=== PATIENT | male | born 1960 | race African-American/Black ===

== ENCOUNTER 2017-02-28 07:59 | Emergency (ER) | payer MEDICAID, OTHER ==
[~2017-02-28] VITALS: Ht 190.5 cm; Wt 130.0 kg
[~2017-02-28 07:59] MED LIST: HYDR12.529 PO; RAMI10CA19 PO
[2017-02-28 08:07] VITALS: BP 114/87
== END 2017-02-28 11:17 | disposition home or self-care (01) ==
LOC: ER 08:22
DX: J06.9 Acute upper respiratory infection, unspecified (principal); I10 Essential (primary) hypertension; M60.9 Myositis, unspecified; Z86.59 Personal history of other mental and behavioral disorders
CPT/HCPCS: 99283

== ENCOUNTER 2017-06-24 09:46 | Observation (INO) | payer OTHER ==
[~2017-06-24] VITALS: Ht 190.5 cm; Wt 131.6 kg
[2017-06-24] MEDS ORDERED: ACETAMINOPHEN 325MG TABLET PO ONE (10:45)
[2017-06-24] MEDS ORDERED: ENOXAPARIN 100MG/ML SYR SUBCUT ONE (12:15)
[2017-06-24] MEDS ORDERED: CLONIDINE 0.1MG TABLET PO PRN (12:30)
[2017-06-24] MEDS ORDERED: MAGNESIUM/ALUMINUM HYDROXIDE/SIMETHICONE 30ML UDC PO PRN (12:30)
[2017-06-24] MEDS ORDERED: IPRATROPIUM/ALBUTEROL 0.5-3(2.5)MG/3ML NEB INH PRN (12:30)
[2017-06-24] MEDS ORDERED: NA PHOS,M-B/NA PHOS,DI-BA ENEMA 118ML PR PRN (12:30)
[2017-06-24] MEDS ORDERED: ACETAMINOPHEN 650MG SUPP PR PRN (12:30)
[2017-06-24] MEDS ORDERED: DIPHENHYDRAMINE 50MG/ML VIAL IV PRN (12:30)
[2017-06-24] MEDS ORDERED: ACETAMINOPHEN 325MG TABLET PO PRN (12:30)
[2017-06-24] MEDS ORDERED: GUAIFENESIN 200MG/10ML SUGAR FREE UDC PO PRN (12:30)
[2017-06-24] MEDS ORDERED: HYDROCODONE/ACETAMINOPHEN 10/325MG TABLET PO PRN (12:30)
[2017-06-24] MEDS ORDERED: DOCUSATE SODIUM 100MG CAPSULE PO PRN (12:30)
[2017-06-24] MEDS ORDERED: ACETAMINOPHEN 650MG/20.3ML UDC GT PRN (12:30)
[2017-06-24 12:33] LABS: BASOPHILS % 0.4 % (0.0-2.0); EOSINOPHILS % 1.1 % (0.0-5.0); HEMATOCRIT. 41.5 % (42.0-52.0); LYMPHOCYTES % 32.3 % (20.0-50.0); MEAN CORPUSCULAR HEMOGLOBIN 31.7 pg (28.0-32.0); MEAN CORPUSCULAR VOLUME 94.3 fL (80.0-94.0); MEAN PLATELET VOLUME 7.7 fl (7.4-10.4); MONOCYTES % 13.7 % (2.0-8.0); NEUTROPHILS % 52.5 % (40.0-76.0); PLATELET 137 x1000/uL (130-400); RED CELL DISTRIBUTION WIDTH 12.9 % (11.6-14.6)
[2017-06-24 12:40] LABS: CHLORIDE 106 mEq/L (98-107)
[2017-06-24 12:42] LABS: PARTIAL THROMBOPLASTIN TIME 27.3 sec (23.4-31.0); PROTHROMBIN TIME 10.5 sec (9.4-11.6)
[2017-06-24 14:53] LABS: CLARITY URINE CLEAR (CLEAR); COLOR URINE YELLOW (YELLOW); KETONES URINE NEGATIVE (NEGATIVE); LEUKOCYTE ESTERASE URINE NEGATIVE (NEGATIVE); NITRITE URINE NEGATIVE (NEGATIVE); OCCULT BLOOD URINE NEGATIVE (NEGATIVE); PROTEIN URINE NEGATIVE (NEGATIVE); SPECIFIC GRAVITY URINE 1.022 (1.005-1.030)
[2017-06-24 15:15] LABS: *AMPHETAMINES SCREEN URINE NEGATIVE (NEGATIVE); *BARBITURATES SCREEN URINE NEGATIVE (NEGATIVE); *BENZODIAZEPINES SCREEN URINE NEGATIVE (NEGATIVE); *COCAINE SCREEN URINE NEGATIVE (NEGATIVE)
[2017-06-24 15:16] LABS: CANNABINOID URINE SCREEN PRESUMTIVE POSITIVE (NEGATIVE); METHADONE URINE SCREEN NEGATIVE (NEGATIVE); OPIATES URINE SCREEN NEGATIVE (NEGATIVE); PHENCYCLIDINE URINE SCREEN NEGATIVE (NEGATIVE)
[2017-06-24 16:40] VITALS: BP 155/89
[2017-06-24 16:41] VITALS: BP 155/89
[2017-06-24] MEDS ORDERED: LISI10TA5 PO (18:24)
[2017-06-24 20:00] VITALS: BP 136/80
[2017-06-24] MEDS: HYDROCODONE/ACETAMINOPHEN 5/325MG TABLET PO PRN (20:27)
[2017-06-24] MEDS: SODIUM CHLORIDE 0.9% INJ 3ML FLUSH IVF SCH (21:48)
[2017-06-24] MEDS ORDERED: ENOXAPARIN 150MG/ML SYR SUBCUT SCH (22:00)
[2017-06-25] VITALS: BP 128/72
[2017-06-25 04:00] VITALS: BP 144/67
[2017-06-25] MEDS: SODIUM CHLORIDE 0.9% INJ 3ML FLUSH IVF SCH (05:36)
[2017-06-25] MEDS: HYDROCODONE/ACETAMINOPHEN 5/325MG TABLET PO PRN (05:36)
[2017-06-25 06:00] LABS: BASOPHILS % 0.6 % (0.0-2.0); EOSINOPHILS % 1.8 % (0.0-5.0); HEMATOCRIT. 40.1 % (42.0-52.0); HEMOGLOBIN. 13.6 g/dL (14.0-18.0); MEAN CORPUSCULAR HEMOGLOBIN 32.3 pg (28.0-32.0); MEAN CORPUSCULAR VOLUME 95.2 fL (80.0-94.0); MEAN PLATELET VOLUME 8.3 fl (7.4-10.4); MONOCYTES % 12.9 % (2.0-8.0); NEUTROPHILS % 48.7 % (40.0-76.0); PLATELET 143 x1000/uL (130-400); RED BLOOD CELL COUNT 4.21 mill/uL (4.7-6.1)
[2017-06-25 06:44] LABS: CHLORIDE 106 mEq/L (98-107)
[2017-06-25 06:57] LABS: LDL CHOLESTEROL 57 mg/dL (5-100)
[2017-06-25 07:06] LABS: HDL CHOLESTEROL 68 mg/dL (40-59)
[2017-06-25 08:00] VITALS: BP 147/81
[2017-06-25] MEDS ORDERED: APIXABAN 5 MG TABLET PO SCH (09:00)
[2017-06-25 12:00] VITALS: BP 132/81
[2017-06-25] MEDS ORDERED: APIX5TAB PO (12:53)
[2017-06-25 13:35] VITALS: BP 132/81
[2017-06-28 09:06] LABS: DRVVT LA 41.4 sec (0.0-47.0); LUPUS ANTICOAG INTERPRETATION Comment: (.); PTT-LA 43.8 sec (0.0-51.9)
== END 2017-06-25 15:38 | disposition home or self-care (01) ==
LOC: ER 10:23 → 5WST 12:34 → EDBEDREQ 14:07 → ENRESERV 15:44
PROVIDERS: ADMIT Family Medicine; ATTEND Family Medicine
DX: I82.412 Acute embolism and thrombosis of left femoral vein (principal); I82.432 Acute embolism and thrombosis of left popliteal vein
CPT/HCPCS: 36415; 71045; 73502; 73562; 78582; 80053; 80061; 80305; 81003; 83880; 84484; 85025; 85610; 85613; 85730; 85732; 93005; 93306; 93970; 96372; 99285; A9540; A9558; G0378; J1650

== ENCOUNTER 2017-07-17 17:32 | Emergency (ER) | payer OTHER, MEDICAID ==
[~2017-07-17] VITALS: Ht 190.5 cm; Wt 128.0 kg
[~2017-07-17 17:32] MED LIST changes: +APIX5TAB PO; +LISI10TA5 PO; -RAMI10CA19 PO
[2017-07-17 23:40] VITALS: BP 158/87
== END 2017-07-17 23:45 | disposition home or self-care (01) ==
LOC: ER 21:13
DX: H11.32 Conjunctival hemorrhage, left eye (principal); E78.00 Pure hypercholesterolemia, unspecified; I10 Essential (primary) hypertension; F41.9 Anxiety disorder, unspecified; F12.10 Cannabis abuse, uncomplicated; Z98.890 Other specified postprocedural states
CPT/HCPCS: 99281

== ENCOUNTER 2018-03-14 08:48 | Emergency (ER) | payer OTHER ==
[~2018-03-14] VITALS: Ht 190.5 cm; Wt 137.0 kg
[2018-03-14] MEDS ORDERED: HYDROCODONE/ACETAMINOPHEN 5/325MG TABLET PO STA (11:40)
[2018-03-14 12:15] LABS: BASOPHILS % 0.6 % (0.0-2.0); EOSINOPHILS % 1.8 % (0.0-5.0); HEMATOCRIT. 45.2 % (42.0-52.0); HEMOGLOBIN. 15.1 g/dL (14.0-18.0); MEAN CORPUSCULAR HEMOGLOBIN 32.4 pg (28.0-32.0); MEAN CORPUSCULAR VOLUME 97.1 fL (80.0-94.0); MONOCYTES % 11.5 % (2.0-8.0); NEUTROPHILS % 52.1 % (40.0-76.0); PLATELET 133 x1000/uL (130-400); RED BLOOD CELL COUNT 4.66 mill/uL (4.7-6.1); RED CELL DISTRIBUTION WIDTH 13.7 % (11.6-14.6)
[2018-03-14 12:17] LABS: CHLORIDE 106 mEq/L (98-107)
[2018-03-14] MEDS ORDERED: ENOXAPARIN 120MG/0.8ML SYR SUBCUT ONE (14:00)
[2018-03-14 14:40] VITALS: BP 126/80
== END 2018-03-14 18:38 | disposition home or self-care (01) ==
LOC: ER 08:48 → CANBEDREQ 20:46
DX: I82.432 Acute embolism and thrombosis of left popliteal vein (principal); M17.11 Unilateral primary osteoarthritis, right knee; I10 Essential (primary) hypertension; F12.90 Cannabis use, unspecified, uncomplicated; Z87.828 Personal history of other (healed) physical injury and trauma; Z86.718 Personal history of other venous thrombosis and embolism
CPT/HCPCS: 36415; 71045; 73522; 73562; 80053; 83880; 84484; 85025; 85610; 93005; 93970; 99284; J1650

== ENCOUNTER 2019-01-04 11:47 | Emergency (ER) | payer OTHER ==
[~2019-01-04] VITALS: Ht 193 cm; Wt 136.0 kg
[2019-01-04] MEDS ORDERED: IBUPROFEN 600MG TABLET PO ONE (16:45)
[2019-01-04 18:52] VITALS: BP 149/95
[2019-01-04] MEDS ORDERED: ENOXAPARIN 150MG/ML SYR SUBCUT ONE (19:00)
== END 2019-01-04 19:52 | disposition home or self-care (01) ==
LOC: ER 11:47
DX: S70.02XA Contusion of left hip, initial encounter (principal); W18.39XA Other fall on same level, initial encounter; Y93.89 Activity, other specified; Y92.89 Other specified places as the place of occurrence of the external cause; Y99.8 Other external cause status; F12.10 Cannabis abuse, uncomplicated; F41.9 Anxiety disorder, unspecified; E78.00 Pure hypercholesterolemia, unspecified; I10 Essential (primary) hypertension; Z98.890 Other specified postprocedural states; Z79.899 Other long term (current) drug therapy; I82.502 Chronic embolism and thrombosis of unspecified deep veins of left lower extremity
CPT/HCPCS: 73502; 93970; 96372; 99284; J1650

== ENCOUNTER 2019-05-24 07:03 | Emergency (ER) | payer OTHER ==
[~2019-05-24] VITALS: Ht 188 cm; Wt 131.0 kg
[2019-05-24] MEDS ORDERED: OXYC30TA86 PO (07:45)
[2019-05-24] MEDS ORDERED: SOMA (07:45)
[2019-05-24] MEDS ORDERED: HYDROCODONE/ACETAMINOPHEN 5/325MG TABLET PO ONE (08:30)
[2019-05-24] MEDS ORDERED: LISINOPRIL 20MG TABLET PO ONE (08:30)
[2019-05-24] MEDS ORDERED: ONDANSETRON 4MG ODT PO ONE (08:30)
[2019-05-24 08:39] LABS: HEMATOCRIT. 45.5 % (42.0-52.0); HEMOGLOBIN. 15.3 g/dL (14.0-18.0); MEAN CORPUSCULAR HEMOGLOBIN 33.3 pg (28.0-32.0); MEAN CORPUSCULAR VOLUME 99.1 fL (80.0-94.0); MEAN PLATELET VOLUME 8.6 fl (7.4-10.4); PLATELET 109 x1000/uL (130-400); RED BLOOD CELL COUNT 4.59 mill/uL (4.7-6.1); RED CELL DISTRIBUTION WIDTH 13.3 % (11.6-14.6)
[2019-05-24 08:46] LABS: CHLORIDE 104 mEq/L (98-107); INR 0.9
[2019-05-24 08:51] LABS: ETHANOL BLOOD < 10 mg/dL
[2019-05-24 09:04] LABS: OPIATES URINE SCREEN NEGATIVE (NEGATIVE)
[2019-05-24 09:05] LABS: *AMPHETAMINES SCREEN URINE NEGATIVE (NEGATIVE); *BARBITURATES SCREEN URINE NEGATIVE (NEGATIVE); *BENZODIAZEPINES SCREEN URINE NEGATIVE (NEGATIVE); *COCAINE SCREEN URINE NEGATIVE (NEGATIVE); CANNABINOID URINE SCREEN PRESUMTIVE POSITIVE (NEGATIVE); PHENCYCLIDINE URINE SCREEN NEGATIVE (NEGATIVE)
[2019-05-24 09:06] LABS: METHADONE URINE SCREEN NEGATIVE (NEGATIVE); PLATELET ESTIMATE DECREASED
[2019-05-24] MEDS ORDERED: APIXABAN 5 MG TABLET PO STA (09:26)
[2019-05-24 12:30] VITALS: BP 154/86
== END 2019-05-24 12:33 | disposition home or self-care (01) ==
LOC: ER 07:03
DX: M54.42 Lumbago with sciatica, left side (principal); I10 Essential (primary) hypertension; F12.10 Cannabis abuse, uncomplicated; Z79.899 Other long term (current) drug therapy; Z98.890 Other specified postprocedural states; Z86.718 Personal history of other venous thrombosis and embolism; Z76.0 Encounter for issue of repeat prescription
CPT/HCPCS: 36415; 71045; 80053; 80305; 80320; 83880; 84484; 85025; 85610; 93005; 93970; 99285; Q0162; G0480

== ENCOUNTER 2019-07-10 22:36 | Emergency (ER) | payer OTHER ==
[~2019-07-10] VITALS: Ht 190.5 cm; Wt 126.3 kg
[~2019-07-10 22:36] MED LIST changes: +OXYC30TA86 PO; +SOMA
[2019-07-11 00:09] LABS: CHLORIDE 99 mEq/L (98-107)
[2019-07-11 00:12] LABS: HEMATOCRIT 41.7 % (42.0-52.0); HEMOGLOBIN 14.2 g/dL (14.0-18.0); MEAN CORPUSCULAR HEMOGLOBIN 33.8 pg (28.0-32.0); MEAN CORPUSCULAR VOLUME 99.5 fL (80.0-94.0); PLATELET 122 x1000/uL (130-400); RED BLOOD CELL COUNT 4.19 mill/uL (4.7-6.1); RED CELL DISTRIBUTION WIDTH 13.5 % (11.6-14.6)
[2019-07-11] MEDS ORDERED: HYDROCODONE/ACETAMINOPHEN 5/325MG TABLET PO ONE (00:45)
[2019-07-11 00:51] VITALS: BP 117/75
== END 2019-07-11 00:50 | disposition home or self-care (01) ==
LOC: ER 22:36
DX: K62.5 Hemorrhage of anus and rectum (principal); I82.502 Chronic embolism and thrombosis of unspecified deep veins of left lower extremity; M79.605 Pain in left leg; G89.29 Other chronic pain; K59.00 Constipation, unspecified; I10 Essential (primary) hypertension; Z79.01 Long term (current) use of anticoagulants
CPT/HCPCS: 36415; 80053; 85027; 86850; 86900; 99283

== ENCOUNTER 2020-05-26 06:01 | Emergency (ER) | payer OTHER, MEDICAID ==
[~2020-05-26] VITALS: Ht 188 cm; Wt 132.0 kg
[~2020-05-26 06:01] MED LIST changes: +LISI10TA26 PO; -LISI10TA5 PO
[2020-05-26] MEDS ORDERED: FUROSEMIDE 40MG/4ML VIAL IVP ONE (06:45)
[2020-05-26 07:02] LABS: BASOPHILS % 0.5 % (0.0-2.0); EOSINOPHILS % 1.9 % (0.0-5.0); HEMOGLOBIN. 14.5 g/dL (14.0-18.0); LYMPHOCYTES % 27.6 % (20.0-50.0); MEAN CORPUSCULAR VOLUME 100.5 fL (80.0-94.0); MEAN PLATELET VOLUME 8.2 fl (7.4-10.4); MONOCYTES % 11.9 % (2.0-8.0); NEUTROPHILS % 58.1 % (40.0-76.0); PLATELET 128 x1000/uL (130-400); RED BLOOD CELL COUNT 4.38 mill/uL (4.7-6.1); RED CELL DISTRIBUTION WIDTH 14.2 % (11.6-14.6)
[2020-05-26 07:10] LABS: CHLORIDE 104 mEq/L (98-107)
[2020-05-26 07:15] LABS: ETHANOL BLOOD < 10 mg/dL
[2020-05-26 07:19] LABS: CREATINE KINASE 337 IU/L (39-308)
[2020-05-26 07:22] LABS: PROTHROMBIN TIME 10.5 sec (9.6-11.0)
[2020-05-26] MEDS ORDERED: APIXABAN 5 MG TABLET PO STA (07:51)
[2020-05-26 07:53] LABS: CLARITY URINE CLEAR (CLEAR); COLOR URINE YELLOW (YELLOW); KETONES URINE NEGATIVE (NEGATIVE); LEUKOCYTE ESTERASE URINE NEGATIVE (NEGATIVE); NITRITE URINE NEGATIVE (NEGATIVE); OCCULT BLOOD URINE NEGATIVE (NEGATIVE); PROTEIN URINE NEGATIVE (NEGATIVE); SPECIFIC GRAVITY URINE 1.007 (1.005-1.030); UROBILINOGEN URINE 0.2 E.U./dL (0.2-1.0)
[2020-05-26 08:55] LABS: *AMPHETAMINES SCREEN URINE NEGATIVE (NEGATIVE); *BARBITURATES SCREEN URINE NEGATIVE (NEGATIVE); *BENZODIAZEPINES SCREEN URINE NEGATIVE (NEGATIVE); *COCAINE SCREEN URINE NEGATIVE (NEGATIVE); METHADONE URINE SCREEN NEGATIVE (NEGATIVE); OPIATES URINE SCREEN NEGATIVE (NEGATIVE)
[2020-05-26 08:56] LABS: CANNABINOID URINE SCREEN PRESUMTIVE POSITIVE (NEGATIVE); PHENCYCLIDINE URINE SCREEN NEGATIVE (NEGATIVE)
[2020-05-26] MEDS ORDERED: APIX5TAB PO (10:31)
[2020-05-26] MEDS ORDERED: FURO-151 PO (10:33)
[2020-05-26 11:12] VITALS: BP 134/74
== END 2020-05-26 11:30 | disposition home or self-care (01) ==
LOC: ER 06:01
DX: R60.0 Localized edema (principal); I11.0 Hypertensive heart disease with heart failure; I50.9 Heart failure, unspecified; E78.00 Pure hypercholesterolemia, unspecified; Z86.718 Personal history of other venous thrombosis and embolism
CPT/HCPCS: 36415; 71045; 80053; 80305; 80320; 81003; 82550; 83690; 83735; 83880; 84484; 85025; 85610; 93005; 93970; 96374; 99285; J1940; G0480

== ENCOUNTER 2020-11-12 23:14 | Inpatient (IN) | payer OTHER, MEDICAID ==
[~2020-11-12] VITALS: Ht 190.5 cm; Wt 121.1 kg
[~2020-11-12 23:14] MED LIST changes: +FURO-151 PO
[2020-11-12] MEDS ORDERED: ASPIRIN 81MG TABLET PO ONE (23:45)
[2020-11-12] MEDS ORDERED: NITROGLYCERIN 0.4MG TABLET SL SL PRN (23:45)
[2020-11-13 00:06] LABS: BASOPHILS % 0.4 % (0.0-2.0); EOSINOPHILS % 0.7 % (0.0-5.0); LYMPHOCYTES % 18.7 % (20.0-50.0); MEAN CORPUSCULAR HEMOGLOBIN 33.8 pg (28.0-32.0); MEAN CORPUSCULAR VOLUME 101.3 fL (80.0-94.0); MEAN PLATELET VOLUME 8.1 fl (7.4-10.4); MONOCYTES % 7.9 % (2.0-8.0); NEUTROPHILS % 72.3 % (40.0-76.0); PLATELET 129 x1000/uL (130-400); RED BLOOD CELL COUNT 4.74 mill/uL (4.7-6.1); RED CELL DISTRIBUTION WIDTH 14.8 % (11.6-14.6)
[2020-11-13 00:14] LABS: CHLORIDE 106 mEq/L (98-107)
[2020-11-13 00:18] LABS: ETHANOL BLOOD < 10 mg/dL
[2020-11-13] MEDS ORDERED: MORPHINE SULFATE 4 MG/ML CPJ (NOT FOR IM USE) IV ONE (00:30)
[2020-11-13] MEDS ORDERED: MORPHINE SULFATE 4 MG/ML CPJ (NOT FOR IM USE) IV NR (05:00)
[2020-11-13] MEDS ORDERED: IOHEXOL-350 100 ML BOTTLE ONE (06:39)
[2020-11-13 09:30] VITALS: BP 149/92
[2020-11-13] MEDS ORDERED: APIXABAN 5 MG TABLET PO SCH ×3 (10:00→17:00)
[2020-11-13] MEDS: FUROSEMIDE 40MG TABLET PO SCH (11:00)
[2020-11-13 14:29] LABS: CLARITY URINE CLEAR (CLEAR); COLOR URINE ORANGE (YELLOW); KETONES URINE NEGATIVE (NEGATIVE); LEUKOCYTE ESTERASE URINE NEGATIVE (NEGATIVE); NITRITE URINE NEGATIVE (NEGATIVE); OCCULT BLOOD URINE NEGATIVE (NEGATIVE); PROTEIN URINE NEGATIVE (NEGATIVE); SPECIFIC GRAVITY URINE 1.015 (1.005-1.030); UROBILINOGEN URINE 0.2 E.U./dL (0.2-1.0)
[2020-11-13 14:55] LABS: *AMPHETAMINES SCREEN URINE NEGATIVE (NEGATIVE); *BARBITURATES SCREEN URINE NEGATIVE (NEGATIVE); *BENZODIAZEPINES SCREEN URINE NEGATIVE (NEGATIVE); *COCAINE SCREEN URINE NEGATIVE (NEGATIVE); OPIATES URINE SCREEN PRESUMTIVE POSITIVE (NEGATIVE)
[2020-11-13 14:56] LABS: CANNABINOID URINE SCREEN PRESUMTIVE POSITIVE (NEGATIVE); METHADONE URINE SCREEN NEGATIVE (NEGATIVE); PHENCYCLIDINE URINE SCREEN NEGATIVE (NEGATIVE)
[2020-11-13 16:00] VITALS: BP 150/98
[2020-11-13 16:46] LABS: CREATINE KINASE 174 IU/L (39-308)
[2020-11-13 16:48] LABS: CREATINE KINASE MB FRACTION 5.2 ng/mL (0.5-3.6)
[2020-11-13 20:00] VITALS: BP 137/82
[2020-11-13] MEDS ORDERED: HYDROCODONE/ACETAMINOPHEN 5/325MG TABLET PO PRN (22:15)
[2020-11-13] MEDS ORDERED: DOCUSATE SODIUM 100MG CAPSULE PO NR (22:15)
[2020-11-13] MEDS ORDERED: NALOXONE HCL 0.4MG/ML VIAL IV PRN (22:15)
[2020-11-13] MEDS: ENOXAPARIN 120MG/0.8ML SYR SUBCUT SCH (23:36)
[2020-11-13] MEDS: ZOLPIDEM TARTRATE 5MG TABLET PO PRN (23:37)
[2020-11-14] VITALS: BP 148/91
[2020-11-14 04:00] VITALS: BP 154/96
[2020-11-14 06:16] LABS: INR 1.1; PROTHROMBIN TIME 11.3 sec (9.6-11.0)
[2020-11-14 06:42] LABS: FOLIC ACID (FOLATE) SERUM 7.7 ng/mL (>5.38)
[2020-11-14] MEDS: DOCUSATE SODIUM 100MG CAPSULE PO SCH ×2 (09:17→17:11)
[2020-11-14] MEDS: FUROSEMIDE 40MG TABLET PO SCH ×3 (09:17→17:12)
[2020-11-14] MEDS: ENOXAPARIN 120MG/0.8ML SYR SUBCUT SCH ×2 (09:17→21:27)
[2020-11-14] MEDS: LISINOPRIL 10MG TABLET PO SCH (09:22)
[2020-11-14] MEDS ORDERED: CLONIDINE 0.1MG TABLET PO PRN (12:15)
[2020-11-14] MEDS ORDERED: POTASSIUM CHLORIDE 20MEQ TABLET SR PO SCH (12:15)
[2020-11-14] MEDS ORDERED: FUROSEMIDE 40MG/4ML VIAL IVP SCH (12:15)
[2020-11-14 16:00] VITALS: BP 197/88
[2020-11-14 20:00] VITALS: BP 132/92
[2020-11-14] MEDS: GABAPENTIN 300MG CAPSULE PO SCH (22:00)
[2020-11-15] VITALS: BP 155/86
[2020-11-15] MEDS: ZOLPIDEM TARTRATE 5MG TABLET PO PRN ×2 (00:08→21:29)
[2020-11-15 04:00] VITALS: BP 153/94
[2020-11-15 05:14] LABS: BASOPHILS % 0.6 % (0.0-2.0); EOSINOPHILS % 1.5 % (0.0-5.0); HEMATOCRIT. 46.2 % (42.0-52.0); HEMOGLOBIN. 15.7 g/dL (14.0-18.0); LYMPHOCYTES % 39.7 % (20.0-50.0); MEAN CORPUSCULAR HEMOGLOBIN 34.6 pg (28.0-32.0); MEAN CORPUSCULAR VOLUME 101.6 fL (80.0-94.0); MEAN PLATELET VOLUME 8.5 fl (7.4-10.4); MONOCYTES % 11.5 % (2.0-8.0); NEUTROPHILS % 46.7 % (40.0-76.0); PLATELET 110 x1000/uL (130-400); RED BLOOD CELL COUNT 4.54 mill/uL (4.7-6.1); RED CELL DISTRIBUTION WIDTH 14.3 % (11.6-14.6)
[2020-11-15 05:19] LABS: CHLORIDE 104 mEq/L (98-107)
[2020-11-15] MEDS: GABAPENTIN 300MG CAPSULE PO SCH ×3 (06:40→21:29)
[2020-11-15 08:00] VITALS: BP 150/78
[2020-11-15] MEDS: DOCUSATE SODIUM 100MG CAPSULE PO SCH ×2 (09:22→17:10)
[2020-11-15] MEDS: ENOXAPARIN 120MG/0.8ML SYR SUBCUT SCH ×2 (09:22→21:29)
[2020-11-15] MEDS: LISINOPRIL 10MG TABLET PO SCH (09:23)
[2020-11-15] MEDS ORDERED: REGADENOSON 0.4 MG/5 ML IV ONE (11:30)
[2020-11-15 12:00] VITALS: BP 159/75
[2020-11-15 16:00] VITALS: BP 158/80
[2020-11-15 20:00] VITALS: BP 149/88
[2020-11-16] VITALS: BP 152/91
[2020-11-16 04:00] VITALS: BP 126/73
[2020-11-16] MEDS: GABAPENTIN 300MG CAPSULE PO SCH ×2 (06:17→13:46)
[2020-11-16 06:19] LABS: BASOPHILS % 0.4 % (0.0-2.0); CHLORIDE 110 mEq/L (98-107); EOSINOPHILS % 1.2 % (0.0-5.0); HEMATOCRIT. 43.2 % (42.0-52.0); HEMOGLOBIN. 14.6 g/dL (14.0-18.0); LYMPHOCYTES % 42.3 % (20.0-50.0); MEAN CORPUSCULAR HEMOGLOBIN 34.3 pg (28.0-32.0); MEAN PLATELET VOLUME 8.8 fl (7.4-10.4); MONOCYTES % 11.6 % (2.0-8.0); NEUTROPHILS % 44.5 % (40.0-76.0); PLATELET 127 x1000/uL (130-400); RED BLOOD CELL COUNT 4.27 mill/uL (4.7-6.1); RED CELL DISTRIBUTION WIDTH 14.5 % (11.6-14.6)
[2020-11-16 08:06] VITALS: BP 138/66
[2020-11-16] MEDS ORDERED: REGADENOSON 0.4 MG/5 ML IV ONE ×2 (08:54→10:26)
[2020-11-16] MEDS: DOCUSATE SODIUM 100MG CAPSULE PO SCH (11:37)
[2020-11-16] MEDS: FUROSEMIDE 40MG TABLET PO SCH (11:37)
[2020-11-16] MEDS: LISINOPRIL 10MG TABLET PO SCH (11:37)
[2020-11-16] MEDS: ENOXAPARIN 120MG/0.8ML SYR SUBCUT SCH (11:37)
[2020-11-16 12:00] VITALS: BP 154/92
[2020-11-16] MEDS ORDERED: APIX5TAB PO (14:56)
[2020-11-16] MEDS ORDERED: APIX5TAB MT ×2 (14:56)
[2020-11-16 15:42] VITALS: BP 148/88
[2020-11-16 16:21] VITALS: BP 148/88
== END 2020-11-16 17:18 | disposition home or self-care (01) | DRG 206 ==
LOC: ER 23:14 → MICUSO 11-13 04:34 → 6WST 11-13 07:21
PROVIDERS: ADMIT Internal Medicine; ATTEND Internal Medicine
DX: M94.0 Chondrocostal junction syndrome [Tietze] (principal); I50.20 Unspecified systolic (congestive) heart failure; I82.432 Acute embolism and thrombosis of left popliteal vein; M48.54XA Collapsed vertebra, not elsewhere classified, thoracic region, initial encounter for fracture; I42.9 Cardiomyopathy, unspecified; J98.01 Acute bronchospasm; E66.9 Obesity, unspecified; M47.816 Spondylosis without myelopathy or radiculopathy, lumbar region; M47.817 Spondylosis without myelopathy or radiculopathy, lumbosacral region; M43.17 Spondylolisthesis, lumbosacral region; Z20.822 Contact with and (suspected) exposure to COVID-19; E78.5 Hyperlipidemia, unspecified; F12.90 Cannabis use, unspecified, uncomplicated; G89.29 Other chronic pain; I11.0 Hypertensive heart disease with heart failure; M43.16 Spondylolisthesis, lumbar region; Z79.01 Long term (current) use of anticoagulants; Z79.899 Other long term (current) drug therapy; Z86.718 Personal history of other venous thrombosis and embolism; Z87.891 Personal history of nicotine dependence; Z71.3 Dietary counseling and surveillance; Z68.33 Body mass index [BMI] 33.0-33.9, adult
CPT/HCPCS: 36415; 71045; 71275; 72110; 74174; 78452; 78580; 80048; 80053; 80305; 80320; 81003; 82550; 82553; 82607; 82746; 83735; 83880; 84443; 84484; 85025; 85379; 87426; 93005; 93017; 93306; 93970; 99291; A9500; J1650; J1940; J2270; J2785; Q9967; G0480

== ENCOUNTER 2021-05-03 23:11 | Inpatient (IN) | payer OTHER, MEDICAID ==
[~2021-05-03] VITALS: Ht 190.5 cm; Wt 129.7 kg
[~2021-05-03 23:11] MED LIST changes: -HYDR12.529 PO
[2021-05-03] MEDS ORDERED: FUROSEMIDE 40MG/4ML VIAL IV ONE (23:45)
[2021-05-03] MEDS ORDERED: NITROGLYCERIN OINT 1GM/INCH UDPKT TD ONE (23:45)
[2021-05-04 00:23] LABS: BASOPHILS % 0.6 % (0.0-2.0); EOSINOPHILS % 1.6 % (0.0-5.0); HEMATOCRIT. 45.1 % (42.0-52.0); HEMOGLOBIN. 15.3 g/dL (14.0-18.0); LYMPHOCYTES % 34.7 % (20.0-50.0); MEAN CORPUSCULAR HEMOGLOBIN 33.4 pg (28.0-32.0); MEAN CORPUSCULAR VOLUME 98.5 fL (80.0-94.0); MEAN PLATELET VOLUME 7.5 fl (7.4-10.4); MONOCYTES % 9.5 % (2.0-8.0); NEUTROPHILS % 53.6 % (40.0-76.0); PLATELET 155 x1000/uL (130-400); RED BLOOD CELL COUNT 4.58 mill/uL (4.7-6.1); RED CELL DISTRIBUTION WIDTH 14.2 % (11.6-14.6)
[2021-05-04 00:28] LABS: CHLORIDE 107 mEq/L (98-107)
[2021-05-04] MEDS ORDERED: IOHEXOL-350 100 ML BOTTLE ONE (03:17)
[2021-05-04] MEDS: HYDROCODONE/ACETAMINOPHEN 5/325MG TABLET PO PRN (08:43)
[2021-05-04] MEDS ORDERED: CLONIDINE 0.1MG TABLET PO PRN (12:15)
[2021-05-04] MEDS ORDERED: DIPHENHYDRAMINE 50MG/ML VIAL IV PRN (12:15)
[2021-05-04] MEDS ORDERED: ACETAMINOPHEN 325MG TABLET PO PRN ×2 (12:15→18:15)
[2021-05-04] MEDS ORDERED: DOCUSATE SODIUM 100MG CAPSULE PO PRN (12:15)
[2021-05-04] MEDS ORDERED: ONDANSETRON HCL 4MG/2ML INJ IV PRN (12:15)
[2021-05-04] MEDS ORDERED: ACETAMINOPHEN 650MG SUPP PR PRN (12:15)
[2021-05-04] MEDS ORDERED: GUAIFENESIN 200MG/10ML SUGAR FREE UDC PO PRN (12:15)
[2021-05-04] MEDS ORDERED: LORAZEPAM 0.5MG TABLET PO PRN (12:15)
[2021-05-04] MEDS ORDERED: MAGNESIUM/ALUMINUM HYDROXIDE/SIMETHICONE 30ML UDC PO PRN (12:15)
[2021-05-04] MEDS ORDERED: HYDROCODONE/ACETAMINOPHEN 5/325MG TABLET PO PRN (12:15)
[2021-05-04] MEDS ORDERED: NA PHOS,M-B/NA PHOS,DI-BA ENEMA 118ML PR PRN (12:15)
[2021-05-04] MEDS ORDERED: IPRATROPIUM/ALBUTEROL 0.5-3(2.5)MG/3ML NEB NEB PRN (12:15)
[2021-05-04] MEDS ORDERED: LISINOPRIL 20MG TABLET PO SCH (13:30)
[2021-05-04 15:27] LABS: BASOPHILS % 0.3 % (0.0-2.0); EOSINOPHILS % 1.8 % (0.0-5.0); HEMOGLOBIN. 16.1 g/dL (14.0-18.0); LYMPHOCYTES % 34.5 % (20.0-50.0); MEAN CORPUSCULAR VOLUME 98.3 fL (80.0-94.0); MEAN PLATELET VOLUME 7.7 fl (7.4-10.4); MONOCYTES % 10.4 % (2.0-8.0); PLATELET 153 x1000/uL (130-400); RED BLOOD CELL COUNT 4.89 mill/uL (4.7-6.1); RED CELL DISTRIBUTION WIDTH 14.2 % (11.6-14.6)
[2021-05-04] MEDS: ENOXAPARIN 30MG/0.3ML SYR SUBCUT SCH (15:28)
[2021-05-04 15:36] LABS: PROTHROMBIN TIME 10.9 sec (9.6-11.0)
[2021-05-04 15:49] LABS: CREATINE KINASE MB FRACTION 7.7 ng/mL (0.5-3.6)
[2021-05-04 15:57] LABS: CHLORIDE 103 mEq/L (98-107)
[2021-05-04 16:23] LABS: BG BASE EXCESS 3.1 mmol/L (-2.0-2.0); BG CARBOXYHEMOGLOBIN 4.3 % (0.5-1.5); BG DEOXYHEMOGLOBIN 4.6 % (0.0-5.0); BG HCO3 ACT 28.2 mmol/L (22.0-26.0); BG METHEMOGLOBIN 0.2 % (0.0-1.5); BG OXYGEN SATURATION 95.2 % (92.0-98.5); BG OXYHEMOGLOBIN 90.9 % (94.0-97.0); BG PCO2 44.6 mmHg (35.0-45.0); BG PH 7.419 (7.350-7.450); BG PO2 75.2 mmHg (75.0-100.0); BG SAMPLE SITE RIGHT RADIAL; BG TOTAL HEMOGLOBIN 16.5 g/dL (12.0-18.0); BG VENT MODE ROOM AIR
[2021-05-04 17:56] VITALS: BP 158/92
[2021-05-04] MEDS: FUROSEMIDE 100MG/10ML VIAL IVP SCH (18:22)
[2021-05-04] MEDS: POTASSIUM CHLORIDE 20MEQ TABLET SR PO SCH (18:23)
[2021-05-04] MEDS ORDERED: CEFTRIAXONE 1 G PREMIX 50 ML IV SCH (19:00)
[2021-05-04 20:00] VITALS: BP 150/81
[2021-05-04] MEDS: FAMOTIDINE 20MG TABLET PO SCH (21:04)
[2021-05-04] MEDS: CEFTRIAXONE 1,000 MG in DEXTROSE 5% WATER 50 ML IV SCH (21:05)
[2021-05-05] VITALS: BP 115/93
[2021-05-05 00:43] LABS: CREATINE KINASE MB FRACTION 7.2 ng/mL (0.5-3.6)
[2021-05-05 04:00] VITALS: BP 142/75
[2021-05-05 05:30] LABS: BASOPHILS % 0.5 % (0.0-2.0); EOSINOPHILS % 1.8 % (0.0-5.0); HEMATOCRIT. 44.3 % (42.0-52.0); LYMPHOCYTES % 33.3 % (20.0-50.0); MEAN CORPUSCULAR HEMOGLOBIN 33.1 pg (28.0-32.0); MEAN CORPUSCULAR VOLUME 97.7 fL (80.0-94.0); MEAN PLATELET VOLUME 7.9 fl (7.4-10.4); MONOCYTES % 11.9 % (2.0-8.0); NEUTROPHILS % 52.5 % (40.0-76.0); PLATELET 142 x1000/uL (130-400); RED BLOOD CELL COUNT 4.53 mill/uL (4.7-6.1); RED CELL DISTRIBUTION WIDTH 14.1 % (11.6-14.6)
[2021-05-05 06:10] LABS: CHLORIDE 104 mEq/L (98-107)
[2021-05-05] MEDS: ENOXAPARIN 30MG/0.3ML SYR SUBCUT SCH ×2 (06:18→17:34)
[2021-05-05] MEDS: FUROSEMIDE 100MG/10ML VIAL IVP SCH ×2 (06:18→17:34)
[2021-05-05 06:20] LABS: LDL CHOLESTEROL 47 mg/dL (5-100)
[2021-05-05 06:21] LABS: HDL CHOLESTEROL 68 mg/dL (40-59); T4 FREE 0.94 ng/dL (0.76-1.46)
[2021-05-05] MEDS: HYDROCODONE/ACETAMINOPHEN 5/325MG TABLET PO PRN ×2 (06:29→17:34)
[2021-05-05 08:00] VITALS: BP 144/86
[2021-05-05 08:30] LABS: CLARITY URINE CLEAR (CLEAR); COLOR URINE YELLOW (YELLOW); KETONES URINE NEGATIVE (NEGATIVE); LEUKOCYTE ESTERASE URINE NEGATIVE (NEGATIVE); NITRITE URINE NEGATIVE (NEGATIVE); OCCULT BLOOD URINE NEGATIVE (NEGATIVE); PROTEIN URINE NEGATIVE (NEGATIVE); SPECIFIC GRAVITY URINE 1.008 (1.005-1.030); UROBILINOGEN URINE 0.2 E.U./dL (0.2-1.0)
[2021-05-05 08:53] LABS: *AMPHETAMINES SCREEN URINE NEGATIVE (NEGATIVE); *BARBITURATES SCREEN URINE NEGATIVE (NEGATIVE); *BENZODIAZEPINES SCREEN URINE NEGATIVE (NEGATIVE); *COCAINE SCREEN URINE NEGATIVE (NEGATIVE)
[2021-05-05 08:54] LABS: CANNABINOID URINE SCREEN NEGATIVE (NEGATIVE); METHADONE URINE SCREEN NEGATIVE (NEGATIVE); OPIATES URINE SCREEN NEGATIVE (NEGATIVE); PHENCYCLIDINE URINE SCREEN NEGATIVE (NEGATIVE)
[2021-05-05] MEDS: POTASSIUM CHLORIDE 20MEQ TABLET SR PO SCH ×2 (09:19→17:34)
[2021-05-05] MEDS: ASPIRIN 81MG EC TABLET PO SCH (09:20)
[2021-05-05] MEDS: LISINOPRIL 20MG TABLET PO SCH (09:20)
[2021-05-05 12:00] VITALS: BP 136/82
[2021-05-05] MEDS ORDERED: METOLAZONE 5MG TABLET PO NR (12:00)
[2021-05-05] MEDS: BUDESONIDE 0.5MG/2ML NEB HHN SCH ×2 (14:46→21:57)
[2021-05-05] MEDS: IPRATROPIUM/ALBUTEROL 0.5-3(2.5)MG/3ML NEB HHN SCH ×2 (14:47→21:56)
[2021-05-05 16:00] VITALS: BP 121/85
[2021-05-05 20:00] VITALS: BP 129/75
[2021-05-05] MEDS: CEFTRIAXONE 1,000 MG in DEXTROSE 5% WATER 50 ML IV SCH (20:35)
[2021-05-05] MEDS: FAMOTIDINE 20MG TABLET PO SCH (20:35)
[2021-05-06] VITALS: BP 132/77
[2021-05-06] MEDS: IPRATROPIUM/ALBUTEROL 0.5-3(2.5)MG/3ML NEB HHN SCH ×3 (01:56→11:27)
[2021-05-06] MEDS: ENOXAPARIN 30MG/0.3ML SYR SUBCUT SCH (04:54)
[2021-05-06] MEDS: HYDROCODONE/ACETAMINOPHEN 5/325MG TABLET PO PRN ×2 (04:55→11:21)
[2021-05-06 06:37] LABS: HEMATOCRIT. 44.6 % (42.0-52.0); HEMOGLOBIN. 15.2 g/dL (14.0-18.0); MEAN CORPUSCULAR HEMOGLOBIN 33.2 pg (28.0-32.0); MEAN CORPUSCULAR VOLUME 97.4 fL (80.0-94.0); MEAN PLATELET VOLUME 7.9 fl (7.4-10.4); PLATELET 140 x1000/uL (130-400); RED BLOOD CELL COUNT 4.58 mill/uL (4.7-6.1); RED CELL DISTRIBUTION WIDTH 14.1 % (11.6-14.6)
[2021-05-06 06:41] LABS: CHLORIDE 99 mEq/L (98-107)
[2021-05-06 07:57] VITALS: BP 136/82
[2021-05-06] MEDS: ASPIRIN 81MG EC TABLET PO SCH (08:13)
[2021-05-06] MEDS: POTASSIUM CHLORIDE 20MEQ TABLET SR PO SCH (08:13)
[2021-05-06] MEDS: LISINOPRIL 20MG TABLET PO SCH (08:13)
[2021-05-06] MEDS: FUROSEMIDE 100MG/10ML VIAL IVP SCH (08:13)
[2021-05-06] MEDS: BUDESONIDE 0.5MG/2ML NEB HHN SCH (08:24)
[2021-05-06 10:20] LABS: PLATELET ESTIMATE NORMAL
[2021-05-06] MEDS ORDERED: METOLAZONE 10MG TABLET PO NR (11:30)
[2021-05-06] MEDS ORDERED: LOSA25TA3 MT (12:48)
[2021-05-06] MEDS ORDERED: ALBU90AE INH (12:49)
[2021-05-06] MEDS ORDERED: FURO-151 MT (12:49)
[2021-05-06] MEDS ORDERED: FLUT1AER INH (12:49)
[2021-05-06] MEDS ORDERED: NALOXONE HCL 0.4MG/ML VIAL IV PRN (15:45)
[2021-05-06 16:34] VITALS: BP 136/82
[2021-05-06] MEDS ORDERED: CARVEDILOL 3.125 MG TABLET PO SCH (21:00)
== END 2021-05-06 17:50 | disposition home or self-care (01) | DRG 291 ==
LOC: ER 23:11 → MICUSO 05-04 04:25 → EDBEDREQ 05-04 04:26 → EDBEDREQTM 05-04 04:26 → 5WST 05-04 18:11
PROVIDERS: ADMIT Internal Medicine; ATTEND Internal Medicine
DX: I11.0 Hypertensive heart disease with heart failure (principal); I50.33 Acute on chronic diastolic (congestive) heart failure; J84.9 Interstitial pulmonary disease, unspecified; E66.2 Morbid (severe) obesity with alveolar hypoventilation; M94.0 Chondrocostal junction syndrome [Tietze]; F12.90 Cannabis use, unspecified, uncomplicated; G89.29 Other chronic pain; I89.0 Lymphedema, not elsewhere classified; Z20.822 Contact with and (suspected) exposure to COVID-19; E78.5 Hyperlipidemia, unspecified; Z79.899 Other long term (current) drug therapy; Z86.718 Personal history of other venous thrombosis and embolism; Z79.01 Long term (current) use of anticoagulants; Z79.51 Long term (current) use of inhaled steroids; Z68.35 Body mass index [BMI] 35.0-35.9, adult; Z71.3 Dietary counseling and surveillance; R06.03 Acute respiratory distress; N62 Hypertrophy of breast
CPT/HCPCS: 36415; 36600; 71045; 71275; 80048; 80053; 80061; 80305; 81003; 82375; 82550; 82553; 82805; 83735; 83880; 84145; 84439; 84443; 84484; 85025; 87426; 93005; 93306; 93970; 94618; 94640; 97162; 99285; J0696; J1650; J1940; J7060; J7626; Q9967

== ENCOUNTER 2022-01-15 23:04 | Inpatient (IN) | payer MEDICARE, MEDICAID ==
[~2022-01-15] VITALS: Ht 190.5 cm; Wt 141.5 kg
[~2022-01-15 23:04] MED LIST changes: +ALBU90AE INH; +FLUT1AER INH; +FURO-151 MT; -FURO-151 PO; -LISI10TA26 PO; +LOSA25TA3 MT
[2022-01-16 09:42] LABS: BASOPHILS % 0.6 % (0.0-2.0); EOSINOPHILS % 1.2 % (0.0-5.0); HEMATOCRIT. 47.2 % (42.0-52.0); HEMOGLOBIN. 15.9 g/dL (14.0-18.0); LYMPHOCYTES % 26.8 % (20.0-50.0); MEAN CORPUSCULAR HEMOGLOBIN 33.2 pg (28.0-32.0); MEAN CORPUSCULAR VOLUME 98.4 fL (80.0-94.0); MEAN PLATELET VOLUME 8.7 fl (7.4-10.4); MONOCYTES % 11.2 % (2.0-8.0); NEUTROPHILS % 60.2 % (40.0-76.0); PLATELET 134 x1000/uL (130-400); RED CELL DISTRIBUTION WIDTH 13.4 % (11.6-14.6)
[2022-01-16 09:52] LABS: CHLORIDE 105 mEq/L (98-107)
[2022-01-16 10:12] LABS: ETHANOL BLOOD < 10 mg/dL
[2022-01-16 10:51] LABS: *AMPHETAMINES SCREEN URINE NEGATIVE (NEGATIVE); *BARBITURATES SCREEN URINE NEGATIVE (NEGATIVE); *BENZODIAZEPINES SCREEN URINE NEGATIVE (NEGATIVE); *COCAINE SCREEN URINE NEGATIVE (NEGATIVE); CANNABINOID URINE SCREEN PRESUMTIVE POSITIVE (NEGATIVE); METHADONE URINE SCREEN NEGATIVE (NEGATIVE); OPIATES URINE SCREEN PRESUMTIVE POSITIVE (NEGATIVE); PHENCYCLIDINE URINE SCREEN NEGATIVE (NEGATIVE)
[2022-01-16] MEDS ORDERED: ASPIRIN 81MG TABLET PO ONE (11:15)
[2022-01-16] MEDS ORDERED: FUROSEMIDE 40MG/4ML VIAL IVP ONE (11:15)
[2022-01-16] MEDS ORDERED: IBUPROFEN 600MG TABLET PO ONE (11:15)
[2022-01-16 11:58] LABS: CLARITY URINE TURBID (CLEAR); COLOR URINE DARK YELLOW (YELLOW); KETONES URINE TRACE (NEGATIVE); LEUKOCYTE ESTERASE URINE 2+ (NEGATIVE); NITRITE URINE POSITIVE (NEGATIVE); OCCULT BLOOD URINE 3+ (NEGATIVE); PH URINE 7.5 (4.5-8.0); PROTEIN URINE 3+ (NEGATIVE); SPECIFIC GRAVITY URINE 1.021 (1.005-1.030)
[2022-01-16] MEDS ORDERED: AMLODIPINE 5MG TABLET PO ONE (12:15)
[2022-01-16 13:00] VITALS: BP 176/87
[2022-01-16 13:03] VITALS: BP 176/87
[2022-01-16] MEDS ORDERED: LISI2.5T47 MT (13:19)
[2022-01-16] MEDS ORDERED: FURO-152 MT (13:19)
[2022-01-16] MEDS ORDERED: PIPERACILLIN/TAZOBACTAM 3.375 G in DEXTROSE 5% WATER 50 ML IV SCH (14:00)
[2022-01-16] MEDS ORDERED: DOCUSATE SODIUM 100MG CAPSULE PO PRN (14:00)
[2022-01-16] MEDS ORDERED: ACETAMINOPHEN 325MG TABLET PO PRN (14:00)
[2022-01-16] MEDS ORDERED: ONDANSETRON HCL 4MG/2ML INJ IV PRN (14:00)
[2022-01-16] MEDS ORDERED: CLONIDINE 0.1MG TABLET PO PRN (14:00)
[2022-01-16] MEDS ORDERED: MAGNESIUM/ALUMINUM HYDROXIDE/SIMETHICONE 30ML UDC PO PRN (14:00)
[2022-01-16] MEDS ORDERED: IPRATROPIUM/ALBUTEROL 0.5-3(2.5)MG/3ML NEB HHN PRN (14:00)
[2022-01-16] MEDS ORDERED: NA PHOS,M-B/NA PHOS,DI-BA ENEMA 118ML PR PRN (14:00)
[2022-01-16] MEDS ORDERED: GUAIFENESIN 200MG/10ML SUGAR FREE UDC PO PRN (14:00)
[2022-01-16 14:31] LABS: TOTAL IRON BINDING CAPACITY 375 ug/dL (250-450)
[2022-01-16 14:41] LABS: FERRITIN 97 ng/mL (22-322)
[2022-01-16 14:57] LABS: VITAMIN B12 SERUM 240 pg/mL (211-911)
[2022-01-16] MEDS: LISINOPRIL 20MG TABLET PO SCH (15:14)
[2022-01-16] MEDS: ASPIRIN 81MG TABLET PO SCH (15:14)
[2022-01-16] MEDS: FUROSEMIDE 20MG TABLET PO SCH (15:14)
[2022-01-16] MEDS: CLONIDINE 0.1MG TABLET PO PRN (15:14)
[2022-01-16] MEDS ORDERED: SOMA (15:16)
[2022-01-16 16:00] VITALS: BP 179/106
[2022-01-16] MEDS ORDERED: VANCOMYCIN 2,000 MG in DEXT 5% WATER 500 ML IV NR (16:00)
[2022-01-16] MEDS ORDERED: AMLODIPINE 5MG TABLET PO NR (16:15)
[2022-01-16] MEDS ORDERED: ZOLPIDEM TARTRATE 5MG TABLET PO PRN (16:30)
[2022-01-16] MEDS: ENOXAPARIN 30MG/0.3ML SYR SUBCUT SCH (17:03)
[2022-01-16 17:12] LABS: CREATINE KINASE 359 IU/L (39-308)
[2022-01-16 20:00] VITALS: BP 153/95
[2022-01-16] MEDS: ASCORBIC ACID 500 MG TABLET PO SCH (21:19)
[2022-01-16] MEDS: FAMOTIDINE 20MG TABLET PO SCH (21:20)
[2022-01-16] MEDS: CARVEDILOL 3.125 MG TABLET PO SCH (21:20)
[2022-01-16] MEDS: PIPERACILLIN/TAZOBACTAM 3.375G in DEXT 5% WATER 50ML IV SCH (21:20)
[2022-01-17] VITALS: BP 146/89
[2022-01-17 02:42] LABS: CREATINE KINASE 281 IU/L (39-308)
[2022-01-17 04:00] VITALS: BP 173/116
[2022-01-17] MEDS: TRAMADOL 50MG TABLET PO PRN ×2 (04:01→20:45)
[2022-01-17] MEDS: CLONIDINE 0.1MG TABLET PO PRN (04:03)
[2022-01-17] MEDS: VANCOMYCIN 1250MG in DEXTROSE 5% WATER 250ML IV SCH ×2 (04:04→17:10)
[2022-01-17] MEDS: PIPERACILLIN/TAZOBACTAM 3.375G in DEXT 5% WATER 50ML IV SCH ×3 (05:41→21:01)
[2022-01-17] MEDS: ENOXAPARIN 30MG/0.3ML SYR SUBCUT SCH ×2 (05:42→17:34)
[2022-01-17 08:00] VITALS: BP 150/93
[2022-01-17 08:25] LABS: HEMATOCRIT 43.6 % (42.0-52.0); HEMOGLOBIN 14.6 g/dL (14.0-18.0); MEAN CORPUSCULAR HEMOGLOBIN 32.8 pg (28.0-32.0); MEAN CORPUSCULAR VOLUME 98.1 fL (80.0-94.0); PLATELET 133 x1000/uL (130-400); RED BLOOD CELL COUNT 4.44 mill/uL (4.7-6.1); RED CELL DISTRIBUTION WIDTH 13.5 % (11.6-14.6)
[2022-01-17] MEDS ORDERED: PNEUMOCOCCAL 23-VAL P-SAC VAC 0.5 ML IM ONE (09:00)
[2022-01-17 09:24] LABS: CHLORIDE 104 mEq/L (98-107)
[2022-01-17] MEDS: ZINC SULFATE 220 MG ( 50 ) CAPSULE PO SCH (09:42)
[2022-01-17] MEDS: ASPIRIN 81MG TABLET PO SCH (09:42)
[2022-01-17] MEDS: FUROSEMIDE 20MG TABLET PO SCH (09:42)
[2022-01-17] MEDS: AMLODIPINE 10MG TABLET PO SCH (09:43)
[2022-01-17] MEDS: ASCORBIC ACID 500 MG TABLET PO SCH ×2 (09:43→20:45)
[2022-01-17] MEDS: CARVEDILOL 3.125 MG TABLET PO SCH ×2 (09:43→20:45)
[2022-01-17] MEDS: LISINOPRIL 20MG TABLET PO SCH (09:43)
[2022-01-17 09:52] LABS: HDL CHOLESTEROL 63 mg/dL (40-59); LDL CHOLESTEROL 53 mg/dL (5-100); PHOSPHORUS 3.4 mg/dL (2.5-4.9); T4 FREE 0.92 ng/dL (0.76-1.46)
[2022-01-17 12:00] VITALS: BP 152/95
[2022-01-17] MEDS: FLUOXETINE HCL 10 MG CAPSULE PO SCH (14:31)
[2022-01-17 16:00] VITALS: BP 147/90
[2022-01-17 20:00] VITALS: BP 154/92
[2022-01-17] MEDS: FAMOTIDINE 20MG TABLET PO SCH (20:45)
[2022-01-17] MEDS: TRAZODONE HCL 50MG TABLET PO SCH (20:45)
[2022-01-18] VITALS: BP 136/78
[2022-01-18] MEDS: VANCOMYCIN 1250MG in DEXTROSE 5% WATER 250ML IV SCH (04:13)
[2022-01-18 04:20] VITALS: BP 116/68
[2022-01-18] MEDS: TRAMADOL 50MG TABLET PO PRN (04:25)
[2022-01-18] MEDS: ENOXAPARIN 30MG/0.3ML SYR SUBCUT SCH ×2 (06:53→17:21)
[2022-01-18] MEDS: PIPERACILLIN/TAZOBACTAM 3.375G in DEXT 5% WATER 50ML IV SCH ×3 (06:53→21:32)
[2022-01-18 07:36] LABS: CHLORIDE 105 mEq/L (98-107)
[2022-01-18 08:00] VITALS: BP 163/100
[2022-01-18] MEDS: ASCORBIC ACID 500 MG TABLET PO SCH ×2 (08:31→20:53)
[2022-01-18] MEDS: AMLODIPINE 10MG TABLET PO SCH (08:32)
[2022-01-18] MEDS: LISINOPRIL 20MG TABLET PO SCH (08:32)
[2022-01-18] MEDS: ZINC SULFATE 220 MG ( 50 ) CAPSULE PO SCH (08:32)
[2022-01-18] MEDS: ASPIRIN 81MG TABLET PO SCH (08:32)
[2022-01-18] MEDS: CARVEDILOL 3.125 MG TABLET PO SCH ×2 (08:32→20:54)
[2022-01-18] MEDS: FUROSEMIDE 20MG TABLET PO SCH (08:32)
[2022-01-18] MEDS: FLUOXETINE HCL 10 MG CAPSULE PO SCH (08:32)
[2022-01-18 12:00] VITALS: BP 144/89
[2022-01-18 16:00] VITALS: BP 154/87
[2022-01-18] MEDS ORDERED: NALOXONE HCL 0.4MG/ML VIAL IV PRN (16:00)
[2022-01-18] MEDS ORDERED: METOLAZONE 10MG TABLET PO NR (16:00)
[2022-01-18] MEDS: VANCOMYCIN 1,000 MG in DEXT 5% WATER 250 ML IV SCH (17:20)
[2022-01-18 20:00] VITALS: BP 147/101
[2022-01-18] MEDS: TRAZODONE HCL 50MG TABLET PO SCH (20:53)
[2022-01-18] MEDS: FAMOTIDINE 20MG TABLET PO SCH (20:54)
[2022-01-19] VITALS: BP 149/90
[2022-01-19] MEDS: VANCOMYCIN 1,000 MG in DEXT 5% WATER 250 ML IV SCH (01:49)
[2022-01-19 04:00] VITALS: BP 156/104
[2022-01-19] MEDS: CLONIDINE 0.1MG TABLET PO PRN (05:11)
[2022-01-19] MEDS: PIPERACILLIN/TAZOBACTAM 3.375G in DEXT 5% WATER 50ML IV SCH (05:11)
[2022-01-19] MEDS: ENOXAPARIN 30MG/0.3ML SYR SUBCUT SCH (05:11)
[2022-01-19 07:41] LABS: BASOPHILS % 0.6 % (0.0-2.0); EOSINOPHILS % 1.6 % (0.0-5.0); HEMATOCRIT. 44.3 % (42.0-52.0); HEMOGLOBIN. 14.9 g/dL (14.0-18.0); LYMPHOCYTES % 35.4 % (20.0-50.0); MEAN CORPUSCULAR HEMOGLOBIN 32.9 pg (28.0-32.0); MEAN CORPUSCULAR VOLUME 98.2 fL (80.0-94.0); MEAN PLATELET VOLUME 8.3 fl (7.4-10.4); MONOCYTES % 11.8 % (2.0-8.0); NEUTROPHILS % 50.6 % (40.0-76.0); PLATELET 137 x1000/uL (130-400); RED BLOOD CELL COUNT 4.52 mill/uL (4.7-6.1); RED CELL DISTRIBUTION WIDTH 13.1 % (11.6-14.6)
[2022-01-19 07:47] LABS: CHLORIDE 102 mEq/L (98-107)
[2022-01-19 08:00] VITALS: BP 151/89
[2022-01-19 08:02] LABS: PHOSPHORUS 3.7 mg/dL (2.5-4.9)
[2022-01-19] MEDS ORDERED: SPIR25TA MT (08:58)
[2022-01-19] MEDS ORDERED: ASPI-1160 PO (08:58)
[2022-01-19] MEDS ORDERED: FAMO20TA8 PO (08:58)
[2022-01-19] MEDS ORDERED: FURO-151 MT (08:58)
[2022-01-19] MEDS: ASPIRIN 81MG TABLET PO SCH (09:52)
[2022-01-19] MEDS: CARVEDILOL 3.125 MG TABLET PO SCH (09:52)
[2022-01-19] MEDS: ZINC SULFATE 220 MG ( 50 ) CAPSULE PO SCH (09:52)
[2022-01-19] MEDS: AMLODIPINE 10MG TABLET PO SCH (09:52)
[2022-01-19] MEDS: ASCORBIC ACID 500 MG TABLET PO SCH (09:52)
[2022-01-19] MEDS: LISINOPRIL 20MG TABLET PO SCH (09:52)
[2022-01-19] MEDS: FUROSEMIDE 20MG TABLET PO SCH (09:53)
[2022-01-19] MEDS: FLUOXETINE HCL 10 MG CAPSULE PO SCH (09:54)
[2022-01-19 09:59] VITALS: BP 145/83
[2022-01-19] MEDS ORDERED: VANCOMYCIN 1G PREMIX 200 ML IV SCH (18:00)
[2022-01-20] MEDS ORDERED: FLUOXETINE HCL 20MG CAPSULE PO SCH (09:00)
== END 2022-01-19 11:30 | disposition home health service (06) | DRG 871 ==
LOC: ER 23:26 → EDBEDREQ 01-16 12:04 → EDBEDREQTM 01-16 12:04 → ENRESERV 01-16 12:24 → 8WST 01-16 13:32
PROVIDERS: ADMIT Internal Medicine; ATTEND Internal Medicine
DX: A41.9 Sepsis, unspecified organism (principal); I50.43 Acute on chronic combined systolic (congestive) and diastolic (congestive) heart failure; J96.00 Acute respiratory failure, unspecified whether with hypoxia or hypercapnia; N39.0 Urinary tract infection, site not specified; J44.9 Chronic obstructive pulmonary disease, unspecified; I11.0 Hypertensive heart disease with heart failure; G47.00 Insomnia, unspecified; F32.A Depression, unspecified; I89.0 Lymphedema, not elsewhere classified; F17.210 Nicotine dependence, cigarettes, uncomplicated; E86.0 Dehydration; I25.2 Old myocardial infarction
CPT/HCPCS: 36415; 71045; 80048; 80053; 80061; 80202; 80305; 80320; 81003; 82550; 82607; 82728; 83036; 83540; 83550; 83735; 83880; 84100; 84145; 84439; 84443; 84484; 85025; 85027; 93005; 93970; 97162; 99291; J1650; J1940; J2543; J3370; J7060; G0480

== ENCOUNTER 2022-06-14 07:52 | Inpatient (IN) | payer MEDICARE, MEDICAID ==
[~2022-06-14] VITALS: Ht 190.5 cm; Wt 142.9 kg
[~2022-06-14 07:52] MED LIST changes: +ASPI-1160 PO; +FAMO20TA8 PO; -OXYC30TA86 PO; -SOMA; +SPIR25TA MT
[2022-06-14 09:07] LABS: BASOPHILS % 0.5 % (0.0-2.0); EOSINOPHILS % 1.9 % (0.0-5.0); HEMATOCRIT. 48.1 % (42.0-52.0); HEMOGLOBIN. 16.3 g/dL (14.0-18.0); LYMPHOCYTES % 33.3 % (20.0-50.0); MEAN CORPUSCULAR HEMOGLOBIN 33.3 pg (28.0-32.0); MEAN PLATELET VOLUME 8.1 fl (7.4-10.4); NEUTROPHILS % 54.3 % (40.0-76.0); PLATELET 144 x1000/uL (130-400); RED BLOOD CELL COUNT 4.91 mill/uL (4.7-6.1); RED CELL DISTRIBUTION WIDTH 13.7 % (11.6-14.6)
[2022-06-14 09:15] LABS: CHLORIDE 107 mEq/L (98-107)
[2022-06-14 09:27] LABS: ETHANOL BLOOD < 10 mg/dL
[2022-06-14] MEDS ORDERED: FUROSEMIDE 40MG/4ML VIAL IV ONE (10:30)
[2022-06-14] MEDS ORDERED: ENOXAPARIN 120MG/0.8ML SYR SUBCUT ONE (11:30)
[2022-06-14 12:23] LABS: *AMPHETAMINES SCREEN URINE NEGATIVE (NEGATIVE); *BARBITURATES SCREEN URINE NEGATIVE (NEGATIVE); *BENZODIAZEPINES SCREEN URINE NEGATIVE (NEGATIVE); *COCAINE SCREEN URINE NEGATIVE (NEGATIVE); CANNABINOID URINE SCREEN NEGATIVE (NEGATIVE); METHADONE URINE SCREEN NEGATIVE (NEGATIVE); OPIATES URINE SCREEN NEGATIVE (NEGATIVE); PHENCYCLIDINE URINE SCREEN NEGATIVE (NEGATIVE)
[2022-06-14] MEDS ORDERED: HYDRALAZINE 20MG/ML VIAL IV NR (13:00)
[2022-06-14] MEDS ORDERED: ONDANSETRON HCL 4MG/2ML INJ IV PRN (13:15)
[2022-06-14] MEDS ORDERED: FUROSEMIDE 40MG/4ML VIAL IV SCH (13:15)
[2022-06-14] MEDS ORDERED: IPRATROPIUM/ALBUTEROL 0.5-3(2.5)MG/3ML NEB HHN PRN (13:15)
[2022-06-14] MEDS ORDERED: TRAMADOL 50MG TABLET PO PRN (13:15)
[2022-06-14] MEDS ORDERED: DOCUSATE SODIUM 100MG CAPSULE PO PRN (13:15)
[2022-06-14] MEDS ORDERED: ACETAMINOPHEN 325MG TABLET PO PRN (13:15)
[2022-06-14] MEDS ORDERED: CLONIDINE 0.1MG TABLET PO PRN (13:15)
[2022-06-14] MEDS ORDERED: MAGNESIUM/ALUMINUM HYDROXIDE/SIMETHICONE 30ML UDC PO PRN (13:15)
[2022-06-14] MEDS ORDERED: GUAIFENESIN 200MG/10ML SUGAR FREE UDC PO PRN (13:15)
[2022-06-14] MEDS: HYDRALAZINE HCL 100MG TABLET PO SCH ×2 (13:46→20:39)
[2022-06-14 13:51] LABS: PROTHROMBIN TIME 11.2 sec (9.6-11.0)
[2022-06-14 14:15] VITALS: BP 161/75
[2022-06-14] MEDS: AMLODIPINE 10MG TABLET PO SCH (15:08)
[2022-06-14 16:00] VITALS: BP 171/103
[2022-06-14] MEDS: FUROSEMIDE 40MG/4ML VIAL IV SCH (16:59)
[2022-06-14] MEDS ORDERED: NALOXONE HCL 0.4MG/ML VIAL IV PRN (17:00)
[2022-06-14 18:22] VITALS: BP 159/95
[2022-06-14 20:00] VITALS: BP 129/80
[2022-06-14] MEDS: HYDROCODONE/ACETAMINOPHEN 5/325MG TABLET PO PRN (20:40)
[2022-06-15] VITALS: BP 142/85
[2022-06-15] MEDS: ENOXAPARIN 120MG/0.8ML SYR SUBCUT SCH ×2 (00:14→11:41)
[2022-06-15 04:00] VITALS: BP 157/95
[2022-06-15] MEDS: HYDROCODONE/ACETAMINOPHEN 7.5/325MG TABLET PO PRN ×2 (04:30→20:36)
[2022-06-15] MEDS: HYDRALAZINE HCL 100MG TABLET PO SCH ×3 (04:31→20:35)
[2022-06-15] MEDS: FUROSEMIDE 40MG/4ML VIAL IV SCH ×2 (06:18→17:12)
[2022-06-15 06:29] LABS: BASOPHILS % 0.3 % (0.0-2.0); EOSINOPHILS % 1.3 % (0.0-5.0); HEMATOCRIT. 43.8 % (42.0-52.0); HEMOGLOBIN. 14.9 g/dL (14.0-18.0); LYMPHOCYTES % 15.7 % (20.0-50.0); MEAN CORPUSCULAR VOLUME 97.2 fL (80.0-94.0); MEAN PLATELET VOLUME 8.3 fl (7.4-10.4); MONOCYTES % 10.8 % (2.0-8.0); NEUTROPHILS % 71.9 % (40.0-76.0); PLATELET 115 x1000/uL (130-400); RED CELL DISTRIBUTION WIDTH 13.9 % (11.6-14.6)
[2022-06-15 06:35] LABS: CHLORIDE 104 mEq/L (98-107)
[2022-06-15 06:46] LABS: HDL CHOLESTEROL 70 mg/dL (40-59); LDL CHOLESTEROL 45 mg/dL (5-100)
[2022-06-15 08:00] VITALS: BP 128/79
[2022-06-15] MEDS: AMLODIPINE 10MG TABLET PO SCH (08:47)
[2022-06-15] MEDS: POLYETHYLENE GLYCOL 3350 (17GM) 1 DOSE PACK PO SCH (11:41)
[2022-06-15] MEDS: FOLIC ACID 1MG TABLET PO SCH (11:41)
[2022-06-15] MEDS: POTASSIUM CHLORIDE 20MEQ TABLET SR PO SCH (11:41)
[2022-06-15] MEDS: THIAMINE HCL 100MG TABLET PO SCH (11:41)
[2022-06-15 12:00] VITALS: BP 142/95
[2022-06-15] MEDS: DOCUSATE SODIUM 100MG CAPSULE PO SCH (17:12)
[2022-06-15 20:00] VITALS: BP 155/94
[2022-06-15] MEDS: ENOXAPARIN 150MG/ML SYR SUBCUT SCH (20:35)
[2022-06-16] VITALS: BP 144/86
[2022-06-16 04:00] VITALS: BP 129/77
[2022-06-16] MEDS: HYDRALAZINE HCL 100MG TABLET PO SCH ×3 (05:56→21:00)
[2022-06-16] MEDS: FUROSEMIDE 40MG/4ML VIAL IV SCH ×2 (06:00→17:36)
[2022-06-16 07:20] LABS: BASOPHILS % 0.3 % (0.0-2.0); EOSINOPHILS % 3.4 % (0.0-5.0); HEMATOCRIT. 44.9 % (42.0-52.0); HEMOGLOBIN. 15.3 g/dL (14.0-18.0); LYMPHOCYTES % 22.1 % (20.0-50.0); MEAN CORPUSCULAR VOLUME 96.8 fL (80.0-94.0); MEAN PLATELET VOLUME 8.3 fl (7.4-10.4); MONOCYTES % 11.4 % (2.0-8.0); NEUTROPHILS % 62.8 % (40.0-76.0); PLATELET 115 x1000/uL (130-400); RED BLOOD CELL COUNT 4.63 mill/uL (4.7-6.1)
[2022-06-16 08:00] VITALS: BP 145/80
[2022-06-16 08:09] LABS: CHLORIDE 100 mEq/L (98-107)
[2022-06-16 08:44] LABS: FOLIC ACID (FOLATE) SERUM 9.9 ng/mL (>5.38)
[2022-06-16] MEDS: DOCUSATE SODIUM 100MG CAPSULE PO SCH ×2 (09:24→17:36)
[2022-06-16] MEDS: POLYETHYLENE GLYCOL 3350 (17GM) 1 DOSE PACK PO SCH (09:24)
[2022-06-16] MEDS: AMLODIPINE 10MG TABLET PO SCH (09:24)
[2022-06-16] MEDS: FOLIC ACID 1MG TABLET PO SCH (09:24)
[2022-06-16] MEDS: THIAMINE HCL 100MG TABLET PO SCH (09:24)
[2022-06-16] MEDS: POTASSIUM CHLORIDE 20MEQ TABLET SR PO SCH (09:24)
[2022-06-16] MEDS: ENOXAPARIN 150MG/ML SYR SUBCUT SCH ×2 (09:25→20:53)
[2022-06-16] MEDS: CYANOCOBALAMIN 1000MCG/ML VIAL IM SCH (10:47)
[2022-06-16 12:00] VITALS: BP 135/81
[2022-06-16 16:00] VITALS: BP 146/91
[2022-06-16 20:00] VITALS: BP 148/89
[2022-06-16] MEDS: HYDROCODONE/ACETAMINOPHEN 5/325MG TABLET PO PRN (20:53)
[2022-06-17] VITALS: BP 137/87
[2022-06-17] MEDS: HYDROCODONE/ACETAMINOPHEN 7.5/325MG TABLET PO PRN (00:53)
[2022-06-17 04:00] VITALS: BP 142/92
[2022-06-17] MEDS: HYDRALAZINE HCL 100MG TABLET PO SCH (05:01)
[2022-06-17] MEDS: FUROSEMIDE 40MG/4ML VIAL IV SCH (06:15)
[2022-06-17 08:00] VITALS: BP 125/71
[2022-06-17] MEDS: CYANOCOBALAMIN 1000MCG/ML VIAL IM SCH (08:51)
[2022-06-17] MEDS: POTASSIUM CHLORIDE 20MEQ TABLET SR PO SCH (08:52)
[2022-06-17] MEDS: POLYETHYLENE GLYCOL 3350 (17GM) 1 DOSE PACK PO SCH (08:52)
[2022-06-17] MEDS: DOCUSATE SODIUM 100MG CAPSULE PO SCH (08:52)
[2022-06-17] MEDS: ENOXAPARIN 150MG/ML SYR SUBCUT SCH (08:52)
[2022-06-17] MEDS: AMLODIPINE 10MG TABLET PO SCH (08:52)
[2022-06-17] MEDS: FOLIC ACID 1MG TABLET PO SCH (08:53)
[2022-06-17] MEDS: THIAMINE HCL 100MG TABLET PO SCH (08:53)
[2022-06-17] MEDS ORDERED: LACTULOSE 20G/30ML UDC PO NR (11:00)
[2022-06-17] MEDS ORDERED: POLYETHYLENE GLYCOL 3350 (17GM) 1 DOSE PACK PO NR (11:00)
[2022-06-17 12:00] VITALS: BP 147/95
[2022-06-17 12:02] VITALS: BP 125/71
[2022-06-29] MEDS ORDERED: CYANOCOBALAMIN 1000MCG/ML VIAL IM SCH (09:00)
== END 2022-06-17 13:40 | disposition home health service (06) | DRG 291 ==
LOC: ER 07:52 → EDBEDREQ 11:27 → 7WST 11:55 → EDBEDREQ 11:59
PROVIDERS: ADMIT Hospitalist; ATTEND Hospitalist
DX: I11.0 Hypertensive heart disease with heart failure (principal); I50.43 Acute on chronic combined systolic (congestive) and diastolic (congestive) heart failure; G82.20 Paraplegia, unspecified; I82.432 Acute embolism and thrombosis of left popliteal vein; I48.0 Paroxysmal atrial fibrillation; M21.371 Foot drop, right foot; M21.372 Foot drop, left foot; Z20.822 Contact with and (suspected) exposure to COVID-19; M54.40 Lumbago with sciatica, unspecified side; J44.9 Chronic obstructive pulmonary disease, unspecified; K59.09 Other constipation; K62.89 Other specified diseases of anus and rectum; E53.8 Deficiency of other specified B group vitamins; F10.20 Alcohol dependence, uncomplicated; R26.9 Unspecified abnormalities of gait and mobility; M48.061 Spinal stenosis, lumbar region without neurogenic claudication; G89.29 Other chronic pain; Z82.49 Family history of ischemic heart disease and other diseases of the circulatory system; Z91.199 Patient's noncompliance with other medical treatment and regimen due to unspecified reason; Z79.899 Other long term (current) drug therapy; Z87.891 Personal history of nicotine dependence
CPT/HCPCS: 36415; 71045; 71275; 72131; 80053; 80061; 80305; 80320; 82306; 82607; 82746; 83880; 84443; 84484; 85025; 87426; 93005; 93306; 93970; 97161; 99291; C9803; J0360; J1650; J1940; J3420; G0480

== ENCOUNTER 2023-06-10 20:16 | Emergency (ER) | payer MEDICARE, MEDICAID ==
[~2023-06-10] VITALS: Ht 188 cm; Wt 137.0 kg
[~2023-06-10 20:16] MED LIST changes: -APIX5TAB PO; -ASPI-1160 PO; +LOSA-412 MT; -LOSA25TA3 MT
[2023-06-10 20:23] VITALS: BP 195/119; PULSE 85; RESP 16; TEMP 98.9; O2SAT 96
[2023-06-10] MEDS: ACETAMINOPHEN 325MG TABLET PO ONE (21:58)
[2023-06-10 22:21] LABS: BASOPHILS % 0.6 % (0.0-2.0); EOSINOPHILS % 1.9 % (0.0-5.0); HEMATOCRIT. 45.3 % (42.0-52.0); HEMOGLOBIN. 15.4 g/dL (14.0-18.0); LYMPHOCYTES % 41.9 % (20.0-50.0); MEAN PLATELET VOLUME 9.7 fl (7.4-10.4); MONOCYTES % 7.9 % (2.0-8.0); NEUTROPHILS % 47.7 % (40.0-76.0); PLATELET 156 x1000/uL (130-400); RED BLOOD CELL COUNT 4.67 mill/uL (4.7-6.1); WHITE BLOOD COUNT 6.3 x1000/uL (4.5-11.0)
[2023-06-10 22:38] LABS: ALANINE AMINOTRANSFERASE 18 IU/L (10-49); ALBUMIN 4.2 g/dL (3.2-4.8); ASPARTATE AMINOTRANSFERASE 34 IU/L (<34); BILIRUBIN TOTAL 0.5 mg/dL (0.1-1.0); CALCIUM 8.7 mg/dL (8.7-10.4); CARBON DIOXIDE 26 mEq/L (21-32); CHLORIDE 108 mEq/L (98-107); CREATININE 0.8 mg/dL (0.6-1.3); GLUCOSE 84 mg/dL (70-105); POTASSIUM 4.3 mEq/L (3.5-5.1); PROTEIN TOTAL 8.3 g/dL (6.0-8.3); SODIUM 137 mEq/L (136-145); TROPONIN I HIGH SENSITIVITY 20 ng/L (3.0-53); UREA NITROGEN BLOOD 7 mg/dL (9-23)
[2023-06-10] MEDS ORDERED: TRAM50TA3 MT (23:37)
[2023-06-10] MEDS ORDERED: TOPUD MT (23:37)
== END 2023-06-11 01:32 | disposition home or self-care (01) ==
LOC: ER 20:16
DX: M46.96 Unspecified inflammatory spondylopathy, lumbar region (principal); I11.0 Hypertensive heart disease with heart failure; I50.9 Heart failure, unspecified; M17.0 Bilateral primary osteoarthritis of knee; F10.129 Alcohol abuse with intoxication, unspecified; Z79.899 Other long term (current) drug therapy; Y90.0 Blood alcohol level of less than 20 mg/100 ml
CPT/HCPCS: 36415; 71045; 72100; 73522; 73560; 80053; 83880; 84484; 85025; 93005; 99284